=== PATIENT | female | born 1990 ===

== ENCOUNTER 2022-07-27 18:56 | Outpatient (CLI) | payer OTHER ==
--- NOTE | 2022-07-28 08:38 | Ultrasound Report ---
PROCEDURE: Pelvic w/Transvaginal INDICATIONS: PELVIC PAIN TECHNIQUE: Real-time scanning was performed of the pelvic organs, with image documentation. Additional endovagi nal scanning was necessary due to incomplete visualization of the adnexal and endometrial structures by transabdominal scanning. COMPARISON: None. FINDINGS: Uterus: Uterus is anteverted and normal in size at 6.7 x 3.2 x 4.6 cm. The myometrium is homogeneou s. The endometrium measures 2.3 mm in combined thickness. Ovaries: The right ovary measures 4.5 x 2.9 x 4.5 cm, with a calculated ovarian volume of 31 cc. Th e left ovary measures 4.5 x 3 x 2.7 cm, with a calculated ovarian volume of 19 cc. The ovaries have a normal sonographic appearance. Less than 12 follicles can be seen in each ovary. No adnexal joseph s are seen. Solid-appearing right ovarian cyst lesion measuring 2 x 1.8 x 2.5 cm. Hemorrhagic corpus luteum on the left. Other: No pathologic free abdominal or pelvic fluid. IMPRESSION: Hemorrhagic left-sided corpus luteum. Additionally, solid-appearing right ovarian lesion measuring 2. 5 cm, probably a hemorrhagic follicle. Recommend follow-up in 8-12 weeks. Reviewed by: Jase Davalos on 07/28/2022 8:37 AM PDT Approved by: Jase Davalos on 07/28/2022 8:37 AM PDT Station ID: [id number]
== END 2022-07-27 18:57 | disposition home or self-care (01) ==
LOC: DI 18:56
PROVIDERS: ATTEND Naturopath
DX: N97.9 Female infertility, unspecified (principal); R10.2 Pelvic and perineal pain; N83.12 Corpus luteum cyst of left ovary; R93.89 Abnormal findings on diagnostic imaging of other specified body structures

== ENCOUNTER 2022-07-28 21:02 | Outpatient (CLI) | payer OTHER ==
--- NOTE | 2022-07-29 10:15 | Ultrasound Report ---
PROCEDURE: Abdomen Complete INDICATIONS: ABD DISTENSION TECHNIQUE: Real-time scanning was performed of the abdominal and retroperitoneal organs, with image documentatio n. COMPARISON: None. FINDINGS: Liver: Liver is normal in size and homogeneous in echotexture. Gallbladder: Unremarkable. Biliary ducts: Intrahepatic bile ducts are non-dilated. Extrahepatic bile duct caliber measures 4.4 mm. Normal is 6-7 mm or less in diameter, or 10 mm or less post-cholecystectomy. Pancreas: Visualized portions of the pancreas are sonographically normal. Spleen: Spleen is normal in size and homogeneous in echotexture. Kidneys: Kidneys are normal in size and echotexture. Right kidney measures 10.8 cm long; left kidne y measures 11.1 cm long. No hydronephrosis or nephrolithiasis. No solid masses. No complex renal cy stic lesions which require follow-up. Aorta: Visualized aorta is normal in caliber at less than 3 cm. Iliacs: Proximal common iliac arteries are normal in caliber at less than 2.5 cm. IVC: Intrahepatic inferior vena cava is patent. Miscellaneous: No free abdominal fluid. IMPRESSION: Normal right upper quadrant ultrasound. No findings to explain the patient's distention. Reviewed by: Jase Davalos on 07/29/2022 10:14 AM PDT Approved by: Jase Davalos on 07/29/2022 10:14 AM PDT Station ID: [id number]
== END 2022-07-28 21:03 | disposition home or self-care (01) ==
LOC: DI 21:02
PROVIDERS: ATTEND Naturopath
DX: N97.9 Female infertility, unspecified (principal); R10.2 Pelvic and perineal pain; R14.0 Abdominal distension (gaseous)

== ENCOUNTER 2023-03-18 11:46 | Emergency (ER) | payer OTHER ==
[2023-03-18 11:54] VITALS: BP 136/80; O2SAT 100
[2023-03-18] MEDS: CYCLOBENZAPRINE 10 MG TABLET PO STA (14:06)
[2023-03-18 14:14] LABS: BILIRUBIN,URINE NEGATIVE (NEGATIVE); GLUCOSE, URINE (UA) NEGATIVE (NEGATIVE); KETONES,URINE (UA) NEGATIVE (NEGATIVE); LEUKOCYTE ESTERASE, URINE NEGATIVE (NEGATIVE); NITRITE,URINE NEGATIVE (NEGATIVE); OCCULT BLOOD,URINE NEGATIVE (NEGATIVE); PROTEIN,URINE NEGATIVE (NEGATIVE); UROBILINOGEN,URINE 0.2 (NORMAL) E.U./dL (NORMAL)
[2023-03-18 14:24] LABS: CLARITY,URINE CLEAR (CLEAR); HCG UR QUAL NEGATIVE
--- NOTE | 2023-03-18 14:42 | ED Physician Documentation ---
PD HPI BACK PAIN - Stated complaint Stated Complaint: LOWER BACK PX,SOA - Chief complaint Chief Complaint: Back Pain PD PAST MEDICAL HISTORY - Past Medical History Past Medical History: No - Past Surgical History Past Surgical History: No - Present Medications Home Medications: Ambulatory Orders Medication Instructions Recorded Confirmed Cyclobenzaprine [Flexeril] 10 mg PO TID PRN #20 tablet 03/18/23 Lidocaine Patch 5% [Lidoderm Patch] 1 patch TOP DAILY PRN #10 patch 03/18/23 - Allergies Allergies/Adverse Reactions: Allergies Allergy/AdvReac Type Severity Reaction Status Date / Time Latex, Natural Rubber Allergy Hives Verified 03/18/23 11:53 - Social History Does the pt smoke?: No Smoking Status: Never smoker Does the pt drink ETOH?: No Does the pt have substance abuse?: No - Immunizations Immunizations are current?: Yes - POLST Patient has POLST: No Results - Vitals Vitals: Vital Signs - 24 hr 03/18/23 11:50 Temperature 36.6 C Heart Rate 94 Respiratory 20 Rate Blood Pressure 136/80 H O2 Saturation 100 Oxygen O2 Source Room air - Labs Labs: Laboratory Tests 03/18/23 12:00 Urine Color LIGHT YELLOW Urine Clarity CLEAR Urine pH 6.0 Ur Specific [place] <=1.005 Urine Protein NEGATIVE Urine Glucose (UA) NEGATIVE Urine Ketones NEGATIVE Urine Occult Blood NEGATIVE Urine Nitrite NEGATIVE Urine Bilirubin NEGATIVE Urine Urobilinogen 0.2 (NORMAL) Ur Leukocyte Esterase NEGATIVE Ur Microscopic Review NOT INDICATED Urine Culture Comments NOT INDICATED Urine HCG, Qual NEGATIVE Departure - Departure Disposition: 01 Home, Self Care Clinical Impression: Low back pain Condition: Stable Instructions: ED Spasm Back No Trauma Prescriptions: Cyclobenzaprine [Flexeril] 10 mg PO TID PRN #20 tablet PRN Reason: Spasms Lidocaine Patch 5% [Lidoderm Patch] 1 patch TOP DAILY PRN #10 patch PRN Reason: pain Comments: Your urine test does not show signs of infection. Sent prescriptions to help you with your low back pain including a muscle relaxer which could make you drowsy so please use caution when using this medication along with lidocaine patches. I would also recommend use of an anti-inflammatory such as acetaminophen or ibuprofen. If your symptoms are not improving please have close follow-up with your primary care provider. Return to the emergency department with any worsening.
--- NOTE | 2023-03-18 17:51 | ED Physician Documentation ---
PD HPI BACK PAIN - Stated complaint Stated Complaint: LOWER BACK PX,SOA - Chief complaint Chief Complaint: Back Pain - History obtained from History obtained from: Patient - Additional information Additional information: Patient is a 32-year-old female with no significant prior medical history presenting for evaluation of low back pain starting around 930 this morning. Patient states that she was sitting at her desk chair for work and went to stand up to get some water and felt her back seized up. She lowered herself to the ground and called her significant other for some assistance. She reports taking ibuprofen as well as a heating pad with some improvement in her symptoms. She reports that her back feels stiff and tight. No radiation to the pain. No bowel or bladder incontinence. Denies history of IV drug use, known malignancy, blood thinner use. No fevers. No saddle anesthesia. She reports that her back feels better when she stands up and is worse if she is sitting. Denies prior history of back issues.No hematuria or dysuria. Denies concerns for . Review of Systems Constitutional: denies: Fever Cardiac: denies: Chest pain / pressure Respiratory: denies: Dyspnea GI: denies: Abdominal Pain Musculoskeletal: reports: Back pain Neurologic: denies: Headache PD PAST MEDICAL HISTORY - Past Medical History Past Medical History: No - Past Surgical History Past Surgical History: No - Present Medications Home Medications: Ambulatory Orders Medication Instructions Recorded Confirmed Cyclobenzaprine [Flexeril] 10 mg PO TID PRN #20 tablet 03/18/23 Lidocaine Patch 5% [Lidoderm Patch] 1 patch TOP DAILY PRN #10 patch 03/18/23 - Allergies Allergies/Adverse Reactions: Allergies Allergy/AdvReac Type Severity Reaction Status Date / Time Latex, Natural Rubber Allergy Hives Verified 03/18/23 11:53 - Social History Does the pt smoke?: No Smoking Status: Never smoker Does the pt drink ETOH?: No Does the pt have substance abuse?: No - Immunizations Immunizations are current?: Yes - POLST Patient has POLST: No PD ED PE NORMAL - General General: Alert and oriented X 3, No acute distress, Well developed/nourished - HEENT HEENT: Atraumatic, Moist mucous membranes - Neck Neck: Supple, no meningeal sign - Cardiac Cardiac: RRR, Strong equal pulses - Respiratory Respiratory: No respiratory distress, Clear bilaterally - Abdomen Abdomen: Normal bowel sounds, Soft, Non tender, Non distended - Back Back: No spinal TTP, Other (Mild paralumbar tenderness to palpation) - Derm Derm: Warm and dry - Extremities Extremities: Other (Normal strength in bilateral hip flexion, knee extension and flexion, ankle dorsiflexion and plantarflexion) - Neuro Neuro: Alert and oriented X 3, No motor deficit, No sensory deficit, Normal speech Results - Vitals Vitals: Vital Signs - 24 hr 03/18/23 11:50 Temperature 36.6 C Heart Rate 94 Respiratory 20 Rate Blood Pressure 136/80 H O2 Saturation 100 Oxygen O2 Source Room air - Labs Labs: Laboratory Tests 03/18/23 12:00 Urine Color LIGHT YELLOW Urine Clarity CLEAR Urine pH 6.0 Ur Specific [place] <=1.005 Urine Protein NEGATIVE Urine Glucose (UA) NEGATIVE Urine Ketones NEGATIVE Urine Occult Blood NEGATIVE Urine Nitrite NEGATIVE Urine Bilirubin NEGATIVE Urine Urobilinogen 0.2 (NORMAL) Ur Leukocyte Esterase NEGATIVE Ur Microscopic Review NOT INDICATED Urine Culture Comments NOT INDICATED Urine HCG, Qual NEGATIVE PD Medical Decision Making - ED course Complexity details: reviewed results, re-evaluated patient, d/w patient ED course: Patient with atraumatic low back pain after standing up from a seated position. Reports it feels like it is stiff tightening sensation in her lower back. She is ambulatory here and actually reports it feels better when she is standing versus sitting down. Neurovascularly intact. No abdominal tenderness. Urine is negative for or infection. No red flag signs or symptoms in regards to her back pain. Patient was given a dose of Flexeril here. I do not think Emergent imaging is indicated at this time. Discussed plan for trial of supportive care as well as need for close follow-up with primary care provider.Patient counseled on concerning symptoms to return for. Departure - Departure Disposition: 01 Home, Self Care Clinical Impression: Low back pain Condition: Stable Instructions: ED Spasm Back No Trauma Prescriptions: Cyclobenzaprine [Flexeril] 10 mg PO TID PRN #20 tablet PRN Reason: Spasms Lidocaine Patch 5% [Lidoderm Patch] 1 patch TOP DAILY PRN #10 patch PRN Reason: pain Comments: Your urine test does not show signs of infection. Sent prescriptions to help you with your low back pain including a muscle relaxer which could make you drowsy so please use caution when using this medication along with lidocaine patches. I would also recommend use of an anti-inflammatory such as acetaminophen or ibuprofen. If your symptoms are not improving please have close follow-up with your primary care provider. Return to the emergency department with any worsening. Discharge Date/Time: 03/18/23 15:00
== END 2023-03-18 15:00 | disposition home or self-care (01) ==
LOC: ED 11:46
DX: M54.50 Low back pain, unspecified (principal); Z91.040 Latex allergy status
CPT/HCPCS: 81003; 81025; 99283; A9270; 81001; 87086